=== PATIENT | female | born 1970 | race Caucasian/White ===

== ENCOUNTER 2020-11-20 15:15 | Outpatient (REF) | payer OTHER, SELFPAY ==
--- NOTE | ~2020-11-20 | MM_ITS ---
EXAMINATION: MM SCREENING DIGITAL BREAST TOMOSYNTHESIS, BILATERAL CLINICAL INFORMATION: Screening. Asymptomatic. The lifetime risk of breast cancer based on the Tyrer-Cuzick Model is 7%. COMPARISON: Mammography: 11/08/2018, 08/31/2017, 09/30/2016, 02/11/2016 TECHNIQUE: Digital breast tomosynthesis is performed in both the craniocaudal and mediolateral oblique views along with computer-aided detection (CAD). Synthesized 2D images are generated from the tomosynthesis. Additional exaggerated left CC view is provided. FINDINGS: The breasts are heterogeneously dense, which may obscure small masses (ACR BI-RADS breast composition Category c). There is fine fibronodular parenchymal pattern with scattered bilateral stable asymmetries. The right breast shows no interval mass or developing density. Neither breast shows architectural abnormality. There are a few scattered benign calcifications on the right. There are numerous left breast calcifications central and outer breast similar to prior study. No focal increasing calcifications or pleomorphic types. The left breast has a new smooth oval mass retroareolar 1:00 position measuring approximately 1.9 x 1.4 x 1.7 cm. This may represent a cyst. Patient will be recalled for additional imaging. MM/MM tomosynthesis screening BI IMPRESSION: 1. Left: New smooth mass anterior 1:00 position 1.9 cm, possibly a cyst. 2. Right: No mammographic evidence of malignancy. ASSESSMENT: BI-RADS 0: Incomplete - Need Additional Imaging Evaluation RECOMMENDATION: 1. Targeted ultrasound left breast. 2. Radiology department staff will contact the patient for additional imaging. This patient's information was entered into a reminder system with a target due date for their next mammogram.
== END 2020-11-20 15:16 | disposition home or self-care (01) ==
LOC: HO.MAMMO 15:15
PROVIDERS: Visit Provider Family Medicine
DX: Z12.31 Encounter for screening mammogram for malignant neoplasm of breast (principal)
CPT/HCPCS: 77063; 77067

== ENCOUNTER 2020-12-09 14:48 | Outpatient (REF) | payer OTHER, SELFPAY ==
--- NOTE | ~2020-12-09 | US_ITS ---
EXAMINATION: US DIAGNOSTIC ULTRASOUND BREAST, LEFT CLINICAL INFORMATION: Recall from screening for new smooth oval mass 1:00 anterior left breast measuring 1.9 cm, likely a cyst. COMPARISON: Mammography 11/20/2020, 11/08/2018. TECHNIQUE: Ultrasound left breast is targeted to the superior breast. Grayscale imaging and color Doppler are performed without and with harmonics. FINDINGS: There is an oval simple cyst 1:00 position 2 cm from nipple corresponding to finding on mammography and measuring 2.0 x 1.5 x 1.4 cm. Incidental adjacent satellite cyst is present measuring approximately 0.4 cm. There is no solid mass or architectural abnormality. Results are discussed with the patient at time of visit. US/US breast LT limited IMPRESSION: Simple cyst 1:00 position corresponding to finding on mammography measuring 2 cm in greatest dimension. Smaller adjacent subcentimeter satellite cyst. ASSESSMENT: BI-RADS 2: Benign RECOMMENDATION: Routine annual mammography screening. This patient's information was entered into a reminder system with a target due date for their next mammogram.
== END 2020-12-09 14:49 | disposition home or self-care (01) ==
LOC: HO.MAMMO 14:48
PROVIDERS: Visit Provider Family Medicine
DX: R92.8 Other abnormal and inconclusive findings on diagnostic imaging of breast (principal); N63.21 Unspecified lump in the left breast, upper outer quadrant
CPT/HCPCS: 76642

== ENCOUNTER 2022-03-10 15:12 | Outpatient (REF) | payer OTHER, SELFPAY ==
--- NOTE | ~2022-03-10 | MM_ITS ---
EXAMINATION: MM SCREENING DIGITAL BREAST TOMOSYNTHESIS, BILATERAL CLINICAL INFORMATION: Screening. Asymptomatic. The lifetime risk of breast cancer based on the Tyrer-Cuzick Model is 7%. COMPARISON: Mammography: 11/20/2020, 11/08/2018, 08/31/2017, 03/02/2017; ultrasound left breast 12/09/2020 TECHNIQUE: Digital breast tomosynthesis is performed in both the craniocaudal and mediolateral oblique views along with computer-aided detection (CAD). Synthesized 2D images are generated from the tomosynthesis. FINDINGS: The breasts are heterogeneously dense, which may obscure small masses (ACR BI-RADS breast composition Category c). There are no significant masses, abnormal calcifications, or other abnormalities. There is fine fibronodular parenchymal pattern. The dominant cyst anterior upper outer left breast is decreased since prior imaging. Smaller adjacent satellite slightly larger. No architectural abnormality. The axilla and skin contours are unremarkable. No significant changes. MM/MM tomosynthesis screening BI IMPRESSION: No mammographic evidence of malignancy. ASSESSMENT: BI-RADS 2: Benign RECOMMENDATION: Routine annual mammography screening. This patient's information was entered into a reminder system with a target due date for their next mammogram.
== END 2022-03-10 15:13 | disposition home or self-care (01) ==
LOC: HO.MAMMO 15:12
PROVIDERS: PCP Obstetrics & Gynecology; Visit Provider Obstetrics & Gynecology
DX: Z12.31 Encounter for screening mammogram for malignant neoplasm of breast (principal)
CPT/HCPCS: 77063; 77067

== ENCOUNTER 2023-04-05 15:55 | Outpatient (REF) | payer OTHER, SELFPAY ==
--- NOTE | ~2023-04-05 | MM_ITS ---
EXAMINATION: MM SCREENING DIGITAL BREAST TOMOSYNTHESIS, BILATERAL CLINICAL INFORMATION: Screening. Asymptomatic. The patient is status post bilateral breast reduction. This occurred in the interval since the last mammogram from 2022. COMPARISON: Mammography: This study is compared with prior exams dating back to 2017. TECHNIQUE: Digital breast tomosynthesis is performed in both the craniocaudal and mediolateral oblique views along with computer-aided detection (CAD). Synthesized 2D images are generated from the tomosynthesis. FINDINGS: There are scattered areas of fibroglandular density (ACR BI-RADS breast composition Category b). There are no significant masses, abnormal calcifications, or other abnormalities. There are bilateral post reduction changes present. MM/MM tomosynthesis screening BI IMPRESSION: No mammographic evidence of malignancy. ASSESSMENT: BI-RADS BI-RADS 2 - Benign Findings RECOMMENDATION: Routine annual mammography screening. 1 year F/U This examination should not preclude the clinical evaluation of a suspicious palpable abnormality. This patient's information was entered into a reminder system with a target due date for their next mammogram.
== END 2023-04-05 15:56 | disposition home or self-care (01) ==
LOC: HO.MAMMO 15:55
PROVIDERS: PCP Student in an Organized Health Care Education/Training Program; Visit Provider Obstetrics & Gynecology
DX: Z12.31 Encounter for screening mammogram for malignant neoplasm of breast (principal)
CPT/HCPCS: 77063; 77067

== ENCOUNTER → 2023-04-05 16:15 | Outpatient (BNV) | payer OTHER, SELFPAY | PROVIDERS: PCP Student in an Organized Health Care Education/Training Program; Visit Provider Radiology Diagnostic Radiology | DX: Z12.31 Encounter for screening mammogram for malignant neoplasm of breast (principal) | CPT/HCPCS: 77063; 77067 ==

== ENCOUNTER 2023-12-31 19:25 | Outpatient (REF) | payer OTHER, SELFPAY ==
--- NOTE | ~2023-12-31 | MR_ITS ---
EXAMINATION: MR CERVICAL SPINE WITHOUT CONTRAST CLINICAL INFORMATION: Radiculopathy , daily radiating pain for 3 years into the right upper extremity COMPARISON: Cervical spine x-ray on 12/26/2018 TECHNIQUE: MRI of the cervical spine was obtained using routine sequences without contrast. FINDINGS: Alignment is maintained. Vertebral body heights are preserved. There is T1 hypointensity and T2 hyperintensity in the inferior endplate of C6, C6-C7 intervertebral disc, and superior endplate of C7. The posterior fossa is unremarkable in signal. The cervical spinal cord is unremarkable in signal. Prevertebral and paraspinal soft tissues are unremarkable. SIGNIFICANT FINDINGS BY LEVEL: C2-C3: No disc bulge or herniation. No significant spinal canal or foraminal stenosis. C3-C4: Mild disc bulge and disc osteophyte complexes result in effacement of the ventral thecal sac and mild bilateral foraminal stenosis. C4-C5: Diffuse disc bulge and disc osteophyte complex results in moderate canal stenosis and severe bilateral foraminal stenosis. C5-C6: Diffuse disc bulge and disc osteophyte complexes result in mild canal stenosis and severe bilateral foraminal stenosis C6-C7: Diffuse disc bulge and disc osteophyte complex result in mild canal stenosis, severe right foraminal stenosis and moderate left foraminal stenosis. C7-T1: No disc bulge or herniation. No significant spinal canal or foraminal stenosis. MR/MR cervical spine wo con IMPRESSION: 1. Degenerative disease of the cervical spine with moderate canal stenosis at C4-C5 and severe bilateral foraminal stenosis at C4-C5, C5-C6 and C6-C7. 2. Abnormal signal in the inferior endplate of C6, C6-C7 intervertebral disc, and superior endplate of C7 consistent with Modic type I degenerative changes given appearance and chronicity of symptoms. Electronically signed by: Elicia Plata MD 01/01/2024 10:25 AM EDT
== END 2023-12-31 19:26 | disposition home or self-care (01) ==
LOC: HO.MRI 19:25
PROVIDERS: PCP Student in an Organized Health Care Education/Training Program; Visit Provider Nurse Practitioner Women's Health
DX: M54.12 Radiculopathy, cervical region (principal)
CPT/HCPCS: 72141